=== PATIENT | male | born 1950 | race Caucasian/White ===

== ENCOUNTER 2020-04-11 07:34 | Emergency (ER) | payer MEDICARE ==
[~2020-04-11] VITALS: Ht 185.4 cm; Wt 102.2 kg
[~2020-04-11 07:34] MED LIST: AMOX/K CLAV875 M1 PO; METOPROL TAR25 M1 PO; PANTOPRAZOLE SO40 MG PO; PRAVASTATIN10 MG PO
[2020-04-11 09:57] VITALS: BP 118/66
== END 2020-04-11 09:57 | disposition home or self-care (01) ==
LOC: ED 07:34
DX: Z04.89 Encounter for examination and observation for other specified reasons (principal); I10 Essential (primary) hypertension